=== PATIENT | female | born 1995 | race American Indian/Alaskan Native ===

== ENCOUNTER 2019-01-26 20:29 | Emergency (ER) | payer OTHER ==
[2019-01-26 21:10] VITALS: BP 126/71
[2019-01-27 04:28] LABS: Bacteria,Urine 1+ /HPF (Negative); Bilirubin,Urine NEG (Negative); Blood,Urine NEG (Negative); Color,Urine Yellow (Yellow); Mucus,Urine FEW /HPF; Protein,Urine <15 mg/dL mg/dL (Negative); Trichomonas,Urine FEW /HPF
[2019-01-27 04:30] LABS: HCG Qualitative,Urine Negative (Negative)
--- NOTE | 2019-01-27 05:48 | Emergency Department Report ---
ED General Adult HPI - General Chief complaint: Chest Pain Stated complaint: CHEST PAINS BACK PAIN Time Seen by Provider: 01/27/19 03:56 Source: patient Mode of arrival: Ambulatory Limitations: No Limitations - History of Present Illness Initial comments: When he 3-year-old -[place] female presents to the emergency room complaining of chest pain starting last week. Patient reports that his come back in the last 3 days. She reports a cough for week. Started feeling shortness of breath today. Patient states that the pain is sharp and stabbing comes and goes denies any shortness of breath or pain at this moment. She's taken nothing for her cough. She isn't nauseated no vomiting no radiation of pain. 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 Patient reports that laying on her stomach makes it worse and landed on her left side makes pain worse. Patient reports pain is better with sitting up. Patient reports ibuprofen and Tylenol did not help with her pain. -: days(s) (3 worst ), week(s) (1) Location: chest Radiation: non-radiation Severity scale (0 -10): 5 Quality: sharp Consistency: intermittent Improves with: other (sitting up) Worsens with: other (lying on her stomach) Treatments Prior to Arrival: none - Related Data Previous Rx's Medication Instructions Recorded Last Taken Type Nitrofurantoin Monohyd/M-Cryst 100 mg PO BID #20 capsule 01/27/19 Unknown Rx [Macrobid 100 mg Capsule] Allergies Allergy/AdvReac Type Severity Reaction Status Date / Time No Known Allergies Allergy Unverified 01/26/19 20:43 ED Review of Systems ROS: Stated complaint: CHEST PAINS BACK PAIN Other details as noted in HPI Comment: All other systems reviewed and negative ED Past Medical Hx - Past Medical History Additional medical history: enlarged heart? - Surgical History Past Surgical History?: No - Social History Smoking Status: Never Smoker Substance Use Type: None - Medications Home Medications: Home Medications Medication Instructions Recorded Confirmed Last Taken Type Nitrofurantoin Monohyd/M-Cryst 100 mg PO BID #20 capsule 01/27/19 Unknown Rx [Macrobid 100 mg Capsule] ED Physical Exam - General Limitations: No Limitations General appearance: alert, in no apparent distress - Head Head exam: Present: atraumatic, normocephalic - Eye Eye exam: Present: normal appearance - ENT ENT exam: Present: mucous membranes moist - Neck Neck exam: Present: normal inspection - Respiratory Respiratory exam: Present: normal lung sounds bilaterally. Absent: respiratory distress - Cardiovascular Cardiovascular Exam: Present: regular rate, normal rhythm. Absent: systolic murmur, diastolic murmur, rubs, gallop - GI/Abdominal GI/Abdominal exam: Present: soft, normal bowel sounds - Extremities Exam Extremities exam: Present: normal inspection - Back Exam Back exam: Present: normal inspection - Neurological Exam Neurological exam: Present: alert, oriented X3 - Psychiatric Psychiatric exam: Present: normal affect, normal mood - Skin Skin exam: Present: warm, dry, intact, normal color. Absent: rash ED Course Vital Signs 01/26/19 01/26/19 21:05 22:01 Temperature 97.9 F 97.9 F Pulse Rate 93 H 86 Respiratory 18 18 Rate Blood Pressure 126/71 126/71 O2 Sat by Pulse 96 97 Oximetry ED Medical Decision Making - Medical Decision Making Patient has been evaluated by this provider in fast track. Urinalysis shows the patient has a urinary tract infection B the reason why she is having increased chest pain when she lays on her stomach. Critical care attestation.: If time is entered above; I have spent that time in minutes in the direct care of this critically ill patient, excluding procedure time. ED Disposition Clinical Impression: Obesity (BMI 30-39.9) UTI (urinary tract infection) Qualifiers: Urinary tract infection type: site unspecified Hematuria presence: without hematuria Qualified Code(s): N39.0 - Urinary tract infection, site not specified Disposition: - TO HOME OR SELFCARE Is pt being admited?: No Does the pt Need Aspirin: No Condition: Stable Instructions: Urinary Tract Infection in Women (ED) Additional Instructions: Please complete antibiotics as prescribed. Increase her water intake. You can take Tylenol and/or Motrin for pain management. Follow up with the primary care provider in the next 3-5 days if her symptoms persist or gets worse. Prescriptions: Nitrofurantoin Monohyd/M-Cryst [Macrobid 100 mg Capsule] 100 mg PO BID #20 capsule Referrals: MARIELA MENA MD [Primary Care Provider] - 3-5 Days Forms: Work/School Release Form(ED)
== END 2019-01-27 06:13 | disposition home or self-care (01) ==
LOC: ED 20:29
DX: N39.0 Urinary tract infection, site not specified (principal); E66.9 Obesity, unspecified; Z68.30 Body mass index [BMI] 30.0-30.9, adult
CPT/HCPCS: 81001; 81025; 99283

== ENCOUNTER 2019-02-05 08:49 | Outpatient (CLI) | payer OTHER ==
[2019-02-05 10:43] LABS: Hematocrit 40.9 % (30.3-42.9); Hemoglobin 13.8 gm/dl (10.1-14.3); Mean Corpuscular HGB Conc 34 % (30-34); Mean Corpuscular Volume 88 fl (79-97); Platelet Count 249 K/mm3 (140-440); Red Blood Count 4.67 M/mm3 (3.65-5.03); Red Cell Distribution Width 13.9 % (13.2-15.2)
[2019-02-05 10:55] LABS: Alanine Aminotransferase 11 units/L (7-56); BUN/Creatinine Ratio 11; Blood Urea Nitrogen 8 mg/dL (7-17); Chol/HDL Ratio 3.75 %; HDL Cholesterol 41 mg/dL (40-59); Hemolysis Index 1; LDL Cholesterol,Direct 113 mg/dL (50-130)
[2019-02-05 11:04] LABS: Free T4 (Free Thyroxine) 0.73 ng/dL (0.76-1.46)
[2019-02-05 11:14] LABS: Erythrocyte Sedimentation Rate 15 mm/Hr (0-20)
== END 2019-02-05 08:50 | disposition home or self-care (01) ==
LOC: LAB 08:49
PROVIDERS: ATTEND Internal Medicine
DX: Z00.01 Encounter for general adult medical examination with abnormal findings (principal); R73.9 Hyperglycemia, unspecified; R09.1 Pleurisy; R53.82 Chronic fatigue, unspecified; E66.9 Obesity, unspecified
CPT/HCPCS: 36415; 80053; 80061; 82306; 82607; 83036; 84439; 84443; 85027; 85652; 86140